=== PATIENT | female | born 1940 | race Caucasian/White ===

== ENCOUNTER → 2017-04-23 | Outpatient (CLI) | payer MEDICARE, BC ==
--- NOTE | 2017-04-23 14:18 | NM ---
EXAMINATION TYPE: NM bone scan whole body DATE OF EXAM: 04/23/2017 COMPARISON: NONE HISTORY: Evaluate for compression deformities at L2, L3, L4, and L5 as well as T12. Delayed whole-body scanning was performed following the injection of 24.7 mCi Tc 99m MDP. Images acq uired 3 hours post injection. FINDINGS: Focal increased radiotracer uptake is seen at T12, L2, L3, and L5. Only minimal radiotracer uptake is seen at L4 to correspond to the compression deformities seen on the outside radiograph dated 04/20/19 18. This indicates acute to subacute fractures of the T12, L2, L3 and L5 vertebral levels with likely chronic compression deformity of L4. Minimal symmetric uptake is seen within the elbows, sacroiliac joints, knees, and ankles related to d egenerative change. Physiologic excretion is seen within the kidneys and urinary bladder. IMPRESSION: 1. Increased radiotracer uptake within the T12, L2, L3 and L5 vertebral bodies indicative of acute to subacute compression fractures when correlated with the prior outside lumbar spine radiographs. No f ocal uptake is seen within the L4 vertebral body and therefore this is likely chronic. 2. Degenerative changes of the appendicular skeleton.
== END | disposition home or self-care (01) ==
LOC: RADNMMAIN 09:59
PROVIDERS: ATTEND Physical Medicine & Rehabilitation
DX: M47.817 Spondylosis without myelopathy or radiculopathy, lumbosacral region (principal)
CPT/HCPCS: 78306; A9503

== ENCOUNTER → 2017-07-05 | Outpatient (CLI) | payer MEDICARE, BC ==
--- NOTE | 2017-07-05 12:36 | MR ---
EXAMINATION TYPE: MR angio neck wo/w con DATE OF EXAM: 07/05/2017 COMPARISON: NONE HISTORY: occlusion and stenosis of unspecified carotid artery CONTRAST: Standard multiplanar, multisequence MRA departmental protocol utilizing 6.5 mL intravenous Gadavist g adolinium contrast. FINDINGS: Vertebral arteries are fairly symmetric in size with slight dominance on the right. The common carotid arteries are patent bilaterally. There is a high-grade severe stenosis measuring g reater than 8% within the proximal right ICA. Within the left proximal ICA there is mild to moderate atherosclerotic change approximately 40-50% st enosis. IMPRESSION: 1. Severe greater than 80% stenosis proximal right ICA. 2. Mild to moderate atherosclerotic changes proximal left ICA measuring 40-50% A Yellow level critical message alert has been initiated for Ilene Dyson DO via the [employer] Critical Results System on 07/05/2017 12:32 PM. This message alert has been sent to Ilene hunt DO via the preferences provided by the clinician for the receipt of Radiology Critical Findings . Message ID [id number].
== END | disposition home or self-care (01) ==
LOC: RADMRIMAIN 07:33
PROVIDERS: ATTEND Family Medicine
DX: I65.23 Occlusion and stenosis of bilateral carotid arteries (principal)
CPT/HCPCS: 70549; A9581

== ENCOUNTER → 2020-05-18 | Outpatient (CLI) | payer MEDICARE, BC ==
--- NOTE | 2020-05-18 10:53 | CT ---
EXAMINATION TYPE: CT abdomen pelvis wo con DATE OF EXAM: 05/18/2020 HISTORY: Back pain, rib pain. Unspecified abdominal pain. CT DLP: 859 mGycm. Automated Exposure Control for Dose Reduction was Utilized. TECHNIQUE: CT scan of the abdomen and pelvis is performed without oral or IV contrast. COMPARISON: NONE FINDINGS: Within the limitations of a non-contrast study, the following observations are made. LUNG BASES: Bibasilar linear scarring and/or atelectasis. Elevated left hemidiaphragm. LIVER/GB: Occasional tiny hypodense lesion anterior liver axial image 19 too small to further charact erize presumed benign. Gallbladder has dependent density consistent with small stones and/or sludge. No surrounding inflammatory change. PANCREAS: No significant abnormality is seen. SPLEEN: No significant abnormality is seen. ADRENALS: No significant abnormality is seen. KIDNEYS: There is a 5 mm nonobstructing calculus upper pole left kidney coronal image 63 suspected ve rsus focal vascular calcification thought less likely. No hydronephrosis or obstructing ureteral calc mehul bilaterally. BOWEL: No suspicious small or large bowel dilatation. Small bowel feces sign distal ileal loops. Find ings consistent with delayed passage of ingested material to colonic level. GENITAL ORGANS: Uterus surgically absent or markedly atrophic. LYMPH NODES: No greater than 1cm abdominal or pelvic lymph nodes are appreciated. OSSEOUS STRUCTURES: Osseous structures are demineralized. Mild to moderate multilevel chronic farhat abraham type fracture deformities with relative sparing of L1 level. Alignment is satisfactory. Multilev el facet arthropathy in the lower lumbar spine. OTHER: Ectatic abdominal aorta with moderate calcified plaque which extends into iliac branch vessels . Tiny fat-containing umbilical hernia. IMPRESSION: No bowel obstruction. Delayed passage of ingested material to colonic level. Demineraliza tion with mild to moderate multilevel chronic compression type fracture deformities. Probable 5 mm no nobstructing stone upper pole left kidney. No acute findings identified.
== END | disposition home or self-care (01) ==
LOC: RADCTMAIN 10:20
PROVIDERS: ATTEND Family Medicine
DX: R10.9 Unspecified abdominal pain (principal); R07.81 Pleurodynia
CPT/HCPCS: 74176

== ENCOUNTER 2020-07-20 05:56 | Day surgery (SDC) | payer MEDICARE, BC ==
[2020-07-15 17:17] VITALS: BMI 22.9
[~2020-07-20 05:56] MED LIST: ALPRAZolam 0.25 MG TAB PO PRN; ASPIRIN 325 MG TAB PO PRN; SODIUM CHLORIDE 0.9% 1,000 ML in EMPTY BAG 1 BAG IV ONE; ZOLPIDEM 5 MG TAB PO PRN
[2020-07-20 06:33] LABS: Basophils # (A) 0.1 k/uL (0-0.2); Basophils % (A) 1 %; Eosinophils # (A) 0.1 k/uL (0-0.7); Eosinophils % (A) 1 %; Lymphocytes % (A) 20 %; MCH 33.8 pg (25.0-35.0); MCHC 34.1 g/dL (31.0-37.0); Mean Platelet Volume 7.6; Monocytes # (A) 0.3 k/uL (0-1.0); Monocytes % (A) 6 %; Neutrophils # (A) 3.6 k/uL (1.3-7.7); Neutrophils % (A) 69 %; Platelet Count 156 k/uL (150-450); RBC 4.75 m/uL (3.80-5.40); RDW 12.7 % (11.5-15.5); WBC 5.2 k/uL (3.8-10.6)
[2020-07-20 06:46] LABS: African American GFR (CKD) >90 (>60 ml/min/1.73 sqM); Anion Gap 8 mmol/L; Blood Urea Nitrogen 10 mg/dL (7-17); Carbon Dioxide 25 mmol/L (22-30); Chloride 109 mmol/L (98-107); Glucose 106 mg/dL (74-99); Non-African American GFR(CKD) 87 (>60 ml/min/1.73 sqM); Sodium 142 mmol/L (137-145)
[2020-07-20] MEDS ORDERED: HEPARIN SODIUM,PORCINE 10,000 UNIT in SODIUM CHLORIDE 0.9% 1,000 ML IRRIGATION PRN (07:00)
[2020-07-20] MEDS ORDERED: HEPARIN SODIUM,PORCINE 2,500 UNIT in SODIUM CHLORIDE 0.9% 250 ML IRRIGATION PRN (07:00)
[2020-07-20] MEDS: MIDAZOLAM 2 MG/2 ML VIAL IV ONE ×2 (07:39→09:53)
[2020-07-20] MEDS ORDERED: fentaNYL (PF) 50 MCG/ML 2 ML AMP IV ONE (07:42)
[2020-07-20] MEDS ORDERED: LIDOCAINE 1% INJ 10MG/ML (20 ML MDV) SQ ONE (07:46)
[2020-07-20] MEDS ORDERED: MIDAZOLAM 2 MG/2 ML VIAL IV ONE ×2 (07:46→08:33)
[2020-07-20] MEDS ORDERED: VERAPAMIL SYRINGE (5 MG/10 ML) INTRAARTER ONE (07:48)
[2020-07-20] MEDS ORDERED: CLOPIDOGREL 75 MG TAB PO ONE (08:39)
[2020-07-20] MEDS ORDERED: HEPARIN SODIUM 1,000 UN/ML (10ML VL) IV ONE (08:46)
[2020-07-20] MEDS ORDERED: IOPAMIDOL-250 100ML BTL INTRAARTER ONE ×3 (09:35→10:01)
[2020-07-20] MEDS ORDERED: hydrALAZINE HCL 20 MG/ML 1 ML VIAL IV ONE (10:00)
--- NOTE | 2020-07-20 10:30 | IR ---
Fluoroscopy HISTORY: Pain in leg 43.8 minutes fluoroscopy time supplied to the referring clinician. 935 intraoperative C-arm images d ocument the procedure. See dictated report from cardiology.
[2020-07-20] MEDS: SODIUM CHLORIDE 0.9% 1,000 ML in EMPTY BAG 1 BAG IV SCH ×2 (14:10→15:43)
--- NOTE | 2020-07-20 15:44 | P.PCN ---
Description of Procedure: PROCEDURES PERFORMED: Abdominal angiography with bilateral runoff, ultrasound guided femoral access, PTBA right proximal to distal SFA with 4.0 balloon, GEOFF of proximal to distal right SFA with overlapping 6.0 x 140 and 5.0 x 140mm Zilver PTX, post dilated with a 5.0 balloon, balloon expandable 7.0 x 29mm Omnilink stent right external iliac artery, left Angioseal closure INDICATION: He class 3 claudication, abnormal ultrasound HISTORY: Patient is a pleasant 80-year-old female with history of hypertension, PAD with carotid artery stenosis and ultrasound showing monophasic waveforms bilaterally concerning for inflow disease. Patient has been having worsened right claudication symptoms with inability to walk more than 100 m and therefore was recommended to perform angiography with possible intervention. CONSENT:I have discussed the risks, benefits and alternative therapies for the above-mentioned procedure and for both sedation/analgesia as well as necessary blood product administration, if indicated, as they pertain to this patient. The patient has indicated understanding and acceptance of the risks and pro cedures discussed. PROCEDURE: After the risks, benefits and alternatives of the above mentioned procedure explained in detail with the patient, informed consent was obtained. Patient was taken to the catheterization lab and prepped and draped in usual fashion. 1% lidocaine was used to anesthetize the right radial area. A 5- [place]an sheath was placed in the right radial artery using modified Seldinger technique. A 5-[place]rean pigtail catheter was inserted to the abdominal aorta and DSA imaging was obtained. Patient tolerated the diagnostic portion well. Due to significant symptoms right SFA and right external iliac intervention was recommended. A 6 [place]rean sheath was inserted in the left femoral artery using modified Seldinger technique, micropuncture technique and ultrasound guidance. A 60 cm destination sheath was placed up and over with the help of a 5 [place]an rim catheter and a 0.035 stiff glide wire. Next selective right lower extremity angiography was performed. A 0.035 stiff Glidewire inside of a angled glide catheter was advanced through the proximal lesion. There was more distal SFA resistance with inability to penetrate the cap. Therefore a subintimal route was utilized. A 0.014 Astato wire was used to reenter into the true lumen with the help of a Quick Cross catheter. Next the Astato wire was exchanged for a 0.018 VK wire which was used to work over. Heparin had been given for an ACT greater than 250. Balloon angioplasty was performed of the SFA using a 4.0 x 100 balloon. Next a 5.0 x 140 mm Zilver PTX drug-eluting stent was placed at the distal SFA and a 6.0 x 140 mm Zilver PTX drug-eluting stent was placed overlapping at the ostial SFA overlapping with the previously placed 5.0 Zilver stent. Next the stents were post dilated with a 5.0 balloon. Final angiograms were performed with excellent stent apposition and less than 10% residual stenosis. Preintervention there was 100% stenosis and postintervention there is less than 10% stenosis. Prevention there was no antegrade flow and postintervention there was complete antegrade flow. There was a more proximal common iliac 50% stenosis and a right external iliac what appeared to be 70-80% stenosis however there was a substantial gradient noted with the destination sheath and therefore pullback was performed. Pullback revealed a 75 mm gradient after the external iliac stenosis. On repeat imaging there was a 90% proximal stenosis. Given poor inflow noted on prior ultrasound and to allow for proper flow for stents and her symptoms, the external iliac stenosis was elected to be treated. Therefore over the 0.035 stiff Glidewire a 7.0 x 29 mm Omnilink balloon expandable stent was deployed. Preintervention there was 90% stenosis and complete antegrade flow and postintervention there is 10% residual stenosis with complete antegrade flow. A TR band was placed and the right radial sheath was removed. A left femoral angiogram showed anatomy suitable for closure. A 6Fr Angioseal was placed with hemostasis achieved. The patient tolerated the procedure well. Patient was transported back to the post catheterization holding area in stable condition. Conscious Sedation: Patient was monitored under the direct supervision of vision of myself for conscious sedation using Versed and fentanyl for a total duration of 138 minutes Abdominal aorta: The pelvic aorta has mild calcifcation. There is no significant dissection or aneurysm. There is no significant stenosis. Renal arteries were not viewed. Right lower extremity: Right common iliac artery: There is a proximal 50% stenosis. Right external iliac artery: There is a proximal 90% stenosis. Right internal iliac artery: There is diffuse 30% stenosis. Right common femoral artery: There is diffuse 30-50% common femoral artery stenosis. Right profunda: There is no significant stenosis. Right SFA: There is a long diffuse 70-80% stenosis back to the ostial SFA along with a mid to distal 100% right SFA stenosis. Right popliteal artery: There is mild 30% stenosis. Right tibioperoneal trunk: There is a 85% TP trunk stenosis. Right anterior tibial artery: There is 100% stenosis. Right posterior tibial artery: There is no significant stenosis Right peroneal artery: There is no significant stenosis Left lower extremity: Left common iliac artery: There is 50-60% stenosis. Left external iliac artery: There is no significant stenosis. Left internal iliac artery: There is 100% stenosis. Left common femoral artery: There is mild 30% stenosis. Left profunda: There is 40% stenosis. Left SFA: There is no significant stenosis. Left popliteal artery: There is no significant stenosis. Left tibioperoneal trunk: There is no significant stenosis. Left anterior tibial artery: There is no significant stenosis. Left porterior tibial artery: There is no significant stenosis. Left peroneal artery: There is no significant stenosis. FINAL IMPRESSION: 1. Peripheral arterial disease as described above including 100% right SFA, 90% right external iliac artery stenosis, 100% right AT, 90% tibioperoneal trunk stenosis. Left 50-60% common iliac artery stenosis. 2. S/p successful GEOFF of proximal to distal right SFA with overlapping 6.0 x 140 and 5.0 x 140mm Zilver PTX, post dilated with a 5.0 balloon and balloon expandable 7.0 x 29mm Omnilink stent of right external iliac artery. PLAN: 1. Aggressive risk factor modification per most recent ACC/AHA guidelines. 2. Monitor overnight 3. Continue dual antiplatelets.
[2020-07-20 17:26] LABS: Glucose,Whole Blood 102 mg/dL (75-99)
[2020-07-20 20:44] LABS: Glucose,Whole Blood 113 mg/dL (75-99)
[2020-07-20] MEDS ORDERED: ATORVASTATIN 20 MG TAB PO SCH (21:00)
[2020-07-21 06:21] LABS: Basophils % (A) 0 %; Eosinophils % (A) 0 %; HCT 41.2 % (34.0-46.0); HGB 14.1 gm/dL (11.4-16.0); Lymphocytes # (A) 0.9 k/uL (1.0-4.8); Lymphocytes % (A) 14 %; MCH 33.6 pg (25.0-35.0); MCHC 34.2 g/dL (31.0-37.0); MCV 98.2 fL (80.0-100.0); Mean Platelet Volume 7.4; Monocytes # (A) 0.4 k/uL (0-1.0); Monocytes % (A) 6 %; Neutrophils # (A) 4.9 k/uL (1.3-7.7); Neutrophils % (A) 78 %; Platelet Count 132 k/uL (150-450); RDW 13.1 % (11.5-15.5); WBC 6.3 k/uL (3.8-10.6)
[2020-07-21 06:31] LABS: African American GFR (CKD) >90 (>60 ml/min/1.73 sqM); Anion Gap 4 mmol/L; Blood Urea Nitrogen 9 mg/dL (7-17); Calcium 9.4 mg/dL (8.4-10.2); Carbon Dioxide 25 mmol/L (22-30); Chloride 110 mmol/L (98-107); Glucose 98 mg/dL (74-99); Non-African American GFR(CKD) >90 (>60 ml/min/1.73 sqM); Potassium 3.8 mmol/L (3.5-5.1); Sodium 139 mmol/L (137-145)
[2020-07-21 07:15] LABS: Glucose,Whole Blood 112 mg/dL (75-99)
[2020-07-21 07:32] VITALS: BP 136/82; PULSE 65; RESP 18; TEMP 97.9
--- NOTE | 2020-07-21 08:10 | P.DS ---
Providers Attending physician: Hebert Corcoran DO Primary care physician: Timbo Altamirano MD Hospital Course: Patient is a pleasant 80-year-old female with history of hypertension, PAD with carotid artery stenosis and ultrasound showing monophasic waveforms bilaterally concerning for inflow disease. Patient has been having worsened right claudication symptoms with inability to walk more than 100 m and therefore was recommended to perform angiography. Patient underwent diagnostic procedure from the right radial approach on 07/20/2020. Patient was found to have obstructive right external iliac disease as well as a 100% stenosis of the right SFA and some below the knee disease with 2 vessel runoff. Therefore patient underwent successful drug-eluting stenting of the right SFA as well as stenting of the right external iliac from a left femoral approach. On 07/21/2020 patient denied any symptoms, no chest pain or pressure or shortness breath. Her groin site is without hematoma. Patient will be discharged home on aspirin and Plavix. Plan - Discharge Summary Discharge Rx Participant: No New Discharge Prescriptions: No Action Ascorbic Acid [Vitamin C] 500 mg PO DAILY Atorvastatin [Lipitor] 20 mg PO HS Ubidecarenone [Co Q-10] 400 mg PO DAILY Cholecalciferol (Vitamin D3) [Vitamin D3 (5000 Iu)] 125 mcg PO DAILY Aspirin EC [Ecotrin] 325 mg PO DAILY Losartan Potassium 100 mg PO QAM Discharge Medication List Ascorbic Acid [Vitamin C] 500 mg PO DAILY 07/15/20 [History] Aspirin EC [Ecotrin] 325 mg PO DAILY 07/15/20 [History] Atorvastatin [Lipitor] 20 mg PO HS 07/15/20 [History] Cholecalciferol (Vitamin D3) [Vitamin D3 (5000 Iu)] 125 mcg PO DAILY 07/15/20 [History] Losartan Potassium 100 mg PO QAM 07/15/20 [History] Ubidecarenone [Co Q-10] 400 mg PO DAILY 07/15/20 [History]
[2020-07-21] MEDS ORDERED: CLOPIDOGREL 75 MG TAB PO SCH (09:00)
[2020-07-21] MEDS ORDERED: LOSARTAN 50 MG TAB PO SCH (09:00)
[2020-07-21] MEDS ORDERED: CHOLECALCIFEROL 25 MCG (1000 IU) TABLET PO SCH (09:00)
[2020-07-21] MEDS ORDERED: ASCORBIC ACID 500 MG TAB PO SCH (09:00)
[2020-07-21] MEDS ORDERED: ASPIRIN 325 MG TAB PO SCH (09:00)
[2020-07-21] MEDS ORDERED: NON FORMULARY DRUG (Ubidecarenone [Co Q-10] 400 MG Capsule) PO SCH (09:00)
== END 2020-07-21 10:27 | disposition home or self-care (01) ==
LOC: CATHCVL 05:56 → 6NMEDSUR 13:45 → 6PED 13:54 → CATHCVL 07-21 10:27
PROVIDERS: ATTEND Internal Medicine
DX: I70.211 Atherosclerosis of native arteries of extremities with intermittent claudication, right leg (principal); I10 Essential (primary) hypertension; E78.5 Hyperlipidemia, unspecified; R94.8 Abnormal results of function studies of other organs and systems; Z87.891 Personal history of nicotine dependence; I65.21 Occlusion and stenosis of right carotid artery; Z95.820 Peripheral vascular angioplasty status with implants and grafts; Z82.49 Family history of ischemic heart disease and other diseases of the circulatory system; Z79.82 Long term (current) use of aspirin; Z79.899 Other long term (current) drug therapy; Z20.822 Contact with and (suspected) exposure to COVID-19
CPT/HCPCS: 37221; 37226; 80048 ×2; 85025 ×2; 87635; C1769 ×8; C1760; C1894 ×3; C1876; C1725; C1887; C1874; J2250; J0360; J2001; J3010; J1644 ×2; Q9966; 37220

== ENCOUNTER → 2020-08-09 | Outpatient (CLI) | payer MEDICARE, BC ==
[2020-08-09 10:00] LABS: HCT 45.8 % (34.0-46.0); HGB 15.7 gm/dL (11.4-16.0); MCH 34.4 pg (25.0-35.0); MCHC 34.3 g/dL (31.0-37.0); MCV 100.2 fL (80.0-100.0); Mean Platelet Volume 7.5; Platelet Count 180 k/uL (150-450); RBC 4.57 m/uL (3.80-5.40); WBC 4.5 k/uL (3.8-10.6)
[2020-08-09 10:12] LABS: African American GFR (CKD) >90 (>60 ml/min/1.73 sqM); Anion Gap 4 mmol/L; Blood Urea Nitrogen 10 mg/dL (7-17); Carbon Dioxide 29 mmol/L (22-30); Chloride 107 mmol/L (98-107); Non-African American GFR(CKD) 86 (>60 ml/min/1.73 sqM); Potassium 4.3 mmol/L (3.5-5.1); Sodium 140 mmol/L (137-145)
== END | disposition home or self-care (01) ==
LOC: LABPAT 09:11
PROVIDERS: ATTEND Internal Medicine
DX: Z01.812 Encounter for preprocedural laboratory examination (principal); I65.21 Occlusion and stenosis of right carotid artery
CPT/HCPCS: 36415; 80051; 82565; 84520; 85027

== ENCOUNTER 2020-08-13 06:04 | Inpatient (IN) | payer MEDICARE, BC ==
[2020-08-11 15:22] VITALS: BMI 23.3
[~2020-08-13 06:04] MED LIST changes: +ALPRAZolam 0.5 MG TAB PO PRN; -ASPIRIN 325 MG TAB PO PRN; +NITROGLYCERIN SL TABS 0.4 MG TAB SUBLINGUAL PRN; -ZOLPIDEM 5 MG TAB PO PRN
[2020-08-13] MEDS ORDERED: ASPIRIN 325 MG TAB PO PRN (07:00)
[2020-08-13] MEDS ORDERED: CLOPIDOGREL 75 MG TAB PO PRN (07:00)
[2020-08-13] MEDS ORDERED: HEPARIN SODIUM 1,000 UN/ML (10ML VL) ONE (07:32)
[2020-08-13] MEDS ORDERED: fentaNYL (PF) 50 MCG/ML 2 ML AMP ONE (07:38)
[2020-08-13] MEDS: fentaNYL (PF) 50 MCG/ML 2 ML AMP IVP ONE ×2 (07:42→10:00)
[2020-08-13] MEDS: MIDAZOLAM 2 MG/2 ML VIAL IVP ONE ×2 (07:42→10:00)
[2020-08-13] MEDS: LIDOCAINE 1% INJ 10MG/ML (20 ML MDV) SQ ONE ×2 (07:45→09:15)
[2020-08-13] MEDS: VERAPAMIL SYRINGE (5 MG/10 ML) INTRAARTER ONE ×2 (07:47→07:54)
[2020-08-13] MEDS: HEPARIN SODIUM 1,000 UN/ML (10ML VL) IVP ONE ×4 (07:55→09:55)
[2020-08-13] MEDS ORDERED: RX INFO: IV CONTRAST WAS GIVEN 1 EACH MISC MISCELLANE PRN (09:00)
[2020-08-13] MEDS ORDERED: IOPAMIDOL-250 100ML BTL INTRAARTER ONE ×3 (09:16→10:53)
[2020-08-13] MEDS ORDERED: IOPAMIDOL-250 50ML BTL INTRAARTER ONE (10:53)
[2020-08-13 11:31] LABS: Glucose,Whole Blood 110 mg/dL (75-99)
[2020-08-13] MEDS ORDERED: ATROPINE SULFATE 0.1 MG/ML 10ML SYRINGE IV PRN (12:58)
[2020-08-13] MEDS ORDERED: MAG HYDROX/AL HYDROX/SIMETH 30 ML CUP PO PRN (12:58)
--- NOTE | 2020-08-13 20:10 | P.PCN ---
Description of Procedure: PROCEDURES PERFORMED: Right radial access, aortic arch angiography, selective right carotid angiography, [id number] carotid stent placement with a post angioplasty 5mm balloon INDICATION: Severe asymptomatic right internal carotid artery stenosis HISTORY: Patient is a pleasant 80-year-old female with history of PAD status post iliac stenting, hypertension, hyperlipidemia, asymptomatic right carotid artery stenosis with prior ultrasound showing greater than 80% stenosis and prior MRA from 07/05/2017 showing greater than 80% stenosis. Patient was felt to be higher risk for carotid endarterectomy given comorbidities and did not desire to undergo surgery and therefore carotid artery stenting was recommended. CONSENT:I have discussed the risks, benefits and alternative therapies for the above-mentioned procedure and for both sedation/analgesia as well as necessary blood product administration, if indicated, as they pertain to this patient. The patient has indicated understanding and acceptance of the risks and procedures discussed. PROCEDURE: After the risks, benefits and alternatives of the above mentioned procedure explained in detail with the patient, informed consent was obtained. Patient was taken to the catheterization lab and prepped and draped in usual fashion. Patient was noted to have a Type 3 arch from prior MRA with some difficulty engaging the descending from radial approach last peripheral stenting and therefore a radial approach was attempted. 1% lidocaine was used to anesthetize the right radial artery. A 6-[place] Islander sheath was placed in the right radial artery using modified Seldinger technique. A 6Fr Terumo 95cm sheath was advanced into the right subclavian. Using catheters including FR4, TARA, Hale 2, VTK, rim catheter the right common carotid artery was able to be engaged however nothing was able to be advanced with some degree of toruosity. Therefore radial approach was abandonded. Aortic root angiography was performed with a 6Fr pigtail catheter. Next a 6Fr sheath was placed in the right femoral artery using micropuncture technique and ultrasound guidance and patient was noted to have extensive mild to moderate plaquing of the right common femoral artery. A 6Fr destination sheath was advanced into the arch. A 0.035 glide advantage in a VTK was used to engage the right subclavian artery however due to toruosity kept kicking out and was unable to be advanced. A 0.035 regular glade wire was advanced through the VTK and advanced down the subclavian to brachial artery. Next a glide sheath was advanced into the brachial and the 0.035 glide was exchanged for the 0.035 glide advantage. The sheath was then able to be advanced into the right innominate over a 6Fr FR4 catheter. The catheter was then able to be pulled back and the 0.035 glide advantage was placed in the external carotid artery. Next the sheath was able to be advanced into the right common carotid artery. Selective right carotid angiography was performed verifying a 90% proximal right internal carotid artery stenosis as well as a more distal right internal carotid artery 50-60% stenosis which was felt best treated medically. Due to contrast threshold, no intracranial images were performed. Heparin was given to maintain ACT > 250. The lesion was crossed easily with a 7.2mm Nav6 filter device and the filter was deployed in the petrous portion of the internal carotid artery. Next balloon angioplasty was performed with a 4.0 x 20mm balloon. Next a [id number] XAct carotid stent was placed overlying the lesion extending into the common carotid artery. The lesion was post dilated with a 5.0 balloon. Preintervention there was a 90% right internal carotid artery stenosis and post intervention there was 15% stenosis without dissection and normal flow. The filter was retrieved without any thrombus noted. Final angiograms were taken. Due to heavy calcification of the right common femoral artery, the sheath was left in place for manual removal. The right radial sheath was removed and a TR band was placed with hemostasis achieved. The patient tolerated the procedure well. Patient was transported back to the post catheterization holding area in stable condition. Conscious Sedation: Patient was monitored under the direct supervision of vision of myself for conscious sedation using Versed and fentanyl for a total duration of 180 minutes HEMODYNAMICS: Ao: 134/78 FINDINGS: Aortic arch angiogram: Patient has a Type 3 aortic arch without aneurysm or dissection. There is no significant stenosis of the innominate, left common carotid or left subclavian arteries. Right common carotid artery: no significant stenosis Right external carotid artery: no significant stenosis Right internal carotid artery: proximal 90% stenosis, distal 50-60% stenosis FINAL IMPRESSION: 1. Successful right internal carotid artery stenting with a [id number] carotid XAct stent, post dilated with a 5.0 balloon PLAN: 1. Monitor for hemodynamic and electrical stability in ICU overnight. 2. Continue dual antiplatelets with aspirin and PLavix for minimum 3 months.
[2020-08-13] MEDS ORDERED: ATORVASTATIN 40 MG TAB PO SCH (21:00)
[2020-08-14 05:16] LABS: Basophils % (A) 1 %; Eosinophils % (A) 1 %; HCT 36.6 % (34.0-46.0); Lymphocytes # (A) 0.5 k/uL (1.0-4.8); Lymphocytes % (A) 9 %; MCH 34.6 pg (25.0-35.0); MCHC 34.8 g/dL (31.0-37.0); MCV 99.4 fL (80.0-100.0); Mean Platelet Volume 8.2; Monocytes # (A) 0.4 k/uL (0-1.0); Monocytes % (A) 7 %; Neutrophils # (A) 4.9 k/uL (1.3-7.7); Neutrophils % (A) 81 %; Platelet Count 129 k/uL (150-450); RBC 3.68 m/uL (3.80-5.40); RDW 12.9 % (11.5-15.5)
[2020-08-14 05:25] LABS: HGB 12.7 gm/dL (11.4-16.0)
[2020-08-14 05:35] LABS: African American GFR (CKD) >90 (>60 ml/min/1.73 sqM); Anion Gap 4 mmol/L; Blood Urea Nitrogen 13 mg/dL (7-17); Calcium 9.2 mg/dL (8.4-10.2); Carbon Dioxide 24 mmol/L (22-30); Chloride 108 mmol/L (98-107); Glucose 102 mg/dL (74-99); Non-African American GFR(CKD) >90 (>60 ml/min/1.73 sqM); Sodium 136 mmol/L (137-145)
[2020-08-14] MEDS ORDERED: LOSARTAN 50 MG TAB PO SCH (09:00)
[2020-08-14] MEDS ORDERED: CLOPIDOGREL 75 MG TAB PO SCH (09:00)
[2020-08-14] MEDS ORDERED: ASPIRIN 325 MG TAB PO SCH (09:00)
[2020-08-14 13:37] VITALS: TEMP 98.2
--- NOTE | 2020-08-14 15:41 | P.DS ---
Providers Date of admission: 08/13/20 06:04 Attending physician: Hebert Corcoran DO Consults: 08/13/20 12:59 Consult Physician Routine Consulting Provider: Martin Grewal Consult Reason/Comments: Post Interventional patient Do you want consulting provider notified?: Already Contacted Primary care physician: Timbo Altamirano MD Hospital Course: This patient was brought in by Dr. Corcoran for elective right carotid endarterectomy for significant stenosis of more than 80%. Patient had successful stenting of the RCA. Patient remained stable overnight. Denies any chest pain, shortness of breath, dizziness. Neurologically intact, moving all the extremities. Lungs are clear. Heart is regular. Patient is being discharged home to continue home medication, that include aspirin and Plavix. Patient will have follow-up with Dr. Corcoran in one week. Patient is advised to avoid any heavy exertional activities. Report to Dr. Corcoran if she develops any change in clinical status or neurological status. Plan - Discharge Summary Discharge Rx Participant: No New Discharge Prescriptions: Continue Ascorbic Acid [Vitamin C] 500 mg PO DAILY Atorvastatin [Lipitor] 20 mg PO HS Ubidecarenone [Co Q-10] 200 mg PO DAILY Cholecalciferol (Vitamin D3) [Vitamin D3 (5000 Iu)] 125 mcg PO DAILY Losartan Potassium 100 mg PO QAM Clopidogrel [Plavix] 75 mg PO DAILY #90 tablet Aspirin [Adult Low Dose Aspirin EC] 81 mg PO DAILY Discharge Medication List Ascorbic Acid [Vitamin C] 500 mg PO DAILY 07/15/20 [History] Atorvastatin [Lipitor] 20 mg PO HS 07/15/20 [History] Cholecalciferol (Vitamin D3) [Vitamin D3 (5000 Iu)] 125 mcg PO DAILY 07/15/20 [History] Losartan Potassium 100 mg PO QAM 07/15/20 [History] Ubidecarenone [Co Q-10] 200 mg PO DAILY 07/15/20 [History] Clopidogrel [Plavix] 75 mg PO DAILY #90 tablet 07/21/20 [Rx] Aspirin [Adult Low Dose Aspirin EC] 81 mg PO DAILY 08/11/20 [History] Follow up Appointment(s)/Referral(s): Hebert Corcoran DO [STAFF PHYSICIAN] - 1 Week (Unable to make appointment at this time as it is after office hours, patient educated to contact office during regular scheduled hours and make follow-up appointment. ) Patient Instructions/Handouts: *Surgery [facility] - After Heart Catheterization - Meal Room Hand Instructions, Carotid Artery Stent Placement (DC) Discharge Disposition: HOME SELF-CARE
[2020-08-14 15:46] VITALS: BP 126/66; PULSE 72; RESP 34
--- NOTE | 2020-08-16 12:42 | IR ---
Fluoroscopy HISTORY: Carotid stenosis 73.6 minutes fluoroscopy time supplied to the referring clinician. 485 intraoperative C-arm images d ocument the procedure. See dictated report from cardiology.
== END 2020-08-14 16:40 | disposition home or self-care (01) | DRG 36 ==
LOC: 2ORMAIN 06:04 → 2SICU 11:08
PROVIDERS: ADMIT Internal Medicine; ATTEND Internal Medicine
PROC: B3101ZZ Fluoroscopy of Thoracic Aorta using Low Osmolar Contrast (ICD-10-PCS; 2020-08-13)
PROC: B3161ZZ Fluoroscopy of Right Internal Carotid Artery using Low Osmolar Contrast (ICD-10-PCS; 2020-08-13)
PROC: 037K3DZ Dilation of Right Internal Carotid Artery with Intraluminal Device, Percutaneous Approach (ICD-10-PCS; principal; 2020-08-13 07:30)
DX: I65.21 Occlusion and stenosis of right carotid artery (principal); I10 Essential (primary) hypertension; E78.5 Hyperlipidemia, unspecified; Z20.822 Contact with and (suspected) exposure to COVID-19
CPT/HCPCS: 37215; 80048; 85025; 87635

== ENCOUNTER → 2021-04-27 | Outpatient (CLI) | payer MEDICARE, BC ==
[2021-04-27 15:01] LABS: ALT 18 U/L (8-44); AST 19 U/L (13-35); Chol/HDL Ratio 2.37 Ratio; VLDL Calculation 16.44 mg/dL (5.00-40.00)
== END | disposition home or self-care (01) ==
LOC: LABWHC1 08:41
PROVIDERS: ATTEND Internal Medicine
DX: E78.2 Mixed hyperlipidemia (principal)
CPT/HCPCS: 36415; 80061; 84450; 84460

== ENCOUNTER → 2021-11-29 | Outpatient (CLI) | payer MEDICARE, BC ==
[2021-11-30 01:02] LABS: African American GFR (CKD) 93.5 (60.0-200.0); Anion Gap 9.5 mmol/L (10.00-18.00); Blood Urea Nitrogen 15.4 mg/dL (9.0-27.0); Calcium 9.9 mg/dL (8.7-10.3); Carbon Dioxide 25.5 mmol/L (20.0-27.5); Non-African American GFR(CKD) 80.7 (60.0-200.0); Potassium 4.6 mmol/L (3.5-5.5)
[2021-11-30 01:37] LABS: HCT 48.6 % (37.2-46.3); MCH 33.3 pg (27.0-32.0); MCHC 32.9 g/dL (32.0-37.0); MCV 101.3 fL (80.0-97.0); Mean Platelet Volume 11.4 fL (9.5-12.2); NRBC Per 100 WBC 0 /100 WBCS (0.0-0.0); Platelet Count 167 X 10*3/uL (140-440); RDW 12.7 % (11.5-14.5)
== END | disposition home or self-care (01) ==
LOC: LABWHC1 16:10
PROVIDERS: ATTEND Internal Medicine Interventional Cardiology
DX: I48.11 Longstanding persistent atrial fibrillation (principal)
CPT/HCPCS: 36415; 80048; 83880; 84443; 85027

== ENCOUNTER → 2022-06-14 | Outpatient (CLI) | payer MEDICARE, BC ==
[2022-06-14 15:14] LABS: Basophils # (A) 0.06 X 10*3/uL (0.00-0.10); Basophils % (A) 1.2 %; Eosinophils # (A) 0.02 X 10*3/uL (0.04-0.35); Eosinophils % (A) 0.4 %; HCT 48.2 % (37.2-46.3); HGB 16.3 g/dL (12.0-15.0); Immature Grans, Automated 0.2 %; Lymphocytes # (A) 1.43 X 10*3/uL (0.90-5.00); MCH 33.3 pg (27.0-32.0); MCHC 33.8 g/dL (32.0-37.0); MCV 98.4 fL (80.0-97.0); Mean Platelet Volume 10.7 fL (9.5-12.2); Monocytes # (A) 0.55 X 10*3/uL (0.20-1.00); Monocytes % (A) 10.8 %; NRBC Per 100 WBC 0 /100 WBCS (0.0-0.0); Neutrophils # (A) 3.04 X 10*3/uL (1.80-7.70); Neutrophils % (A) 59.4 %; Platelet Count 159 X 10*3/uL (140-440); RDW 12.6 % (11.5-14.5); WBC 5.11 X 10*3/uL (4.50-10.00)
[2022-06-14 17:19] LABS: Chol/HDL Ratio 2.96 Ratio; LDL Cholesterol,Calculated 98.5 mg/dL (0.0-131.0)
[2022-06-14 18:11] LABS: ALT 30 U/L (8-44); AST 33 U/L (13-35); Albumin 4.6 g/dL (3.8-4.9); Alkaline Phosphatase 81 U/L (41-126); BUN/Creat Ratio 18.38 Ratio (12.00-20.00); Blood Urea Nitrogen 14.7 mg/dL (9.0-27.0); Calcium 10.1 mg/dL (8.7-10.3); Carbon Dioxide 24.9 mmol/L (20.0-27.5); Chloride 104 mmol/L (96-109); Globulin 2.3 g/dL (1.6-3.3); Glucose 93 mg/dL (70-110); Non-African American GFR(CKD) 68.2 (60.0-200.0); Potassium 4.8 mmol/L (3.5-5.5); Sodium 141 mmol/L (135-145); Total Protein 6.9 g/dL (6.2-8.2)
== END | disposition home or self-care (01) ==
LOC: LABWHC1 09:39
PROVIDERS: ATTEND Family Medicine
DX: I10 Essential (primary) hypertension (principal); I65.29 Occlusion and stenosis of unspecified carotid artery; R53.83 Other fatigue
CPT/HCPCS: 36415; 80053; 80061; 82306; 83036; 84443; 85025

== ENCOUNTER 2022-12-02 08:59 | Emergency (ER) | payer MEDICARE, BC ==
--- NOTE | 2022-12-02 09:12 | ED ---
Female Urogenital HPI - General Chief complaint: Urogenital Stated complaint: Blood in Urine Time Seen by Provider: 12/02/22 09:00 Source: patient, RN notes reviewed Mode of arrival: EMS Limitations: no limitations - History of Present Illness Initial comments: This is an 82-year-old female who presents to the emergency department for hematuria. States that when she got up to use the restroom this morning, she urinated essentially pure blood. Since then, she has urinated several more times, and again states that it is only blood. She has started to feel fairly weak, and is worried about losing too much blood. She was started on warfarin for atrial fibrillation a few months ago. She had her INR checked yesterday, and states that it was 3.6. She does complain of some left mid back pain over the last couple of days. Denies any abdominal pain, nausea, or vomiting. Denies any fevers, chills, sore throat, cough, dyspnea, chest pain, palpitations, abdominal pain, nausea, vomiting, diarrhea, or headaches. MD Complaint: other (hematuria) - Related Data Home Medications Medication Instructions Recorded Confirmed Ascorbic Acid [Vitamin C] 500 mg PO DAILY 07/15/20 08/13/20 Atorvastatin [Lipitor] 20 mg PO HS 07/15/20 08/13/20 Cholecalciferol (Vitamin D3) 125 mcg PO DAILY 07/15/20 08/13/20 [Vitamin D3 (5000 Iu)] Losartan Potassium 100 mg PO QAM 07/15/20 08/13/20 Ubidecarenone [Co Q-10] 200 mg PO DAILY 07/15/20 08/13/20 Aspirin [Adult Low Dose Aspirin EC] 81 mg PO DAILY 08/11/20 08/13/20 Previous Rx's Medication Instructions Recorded Clopidogrel [Plavix] 75 mg PO DAILY #90 tablet 07/21/20 Allergies Allergy/AdvReac Type Severity Reaction Status Date / Time antiperspirant deoderant Allergy boils Uncoded 12/02/22 09:17 Review of Systems ROS Statement: Those systems with pertinent positive or pertinent negative responses have been documented in the HPI. ROS Other: All systems not noted in ROS Statement are negative. Past Medical History Past Medical History: Hyperlipidemia, Hypertension Additional Past Medical History / Comment(s): SOB, leg pain, PVD, osteoporosis, hx of glaucoma History of Any Multi-Drug Resistant Organisms: None Reported Past Surgical History: Hysterectomy Additional Past Surgical History / Comment(s): states had "balloon sx on both legs in past" partial thyroidectomy, laser sx carmel eyes for glaucoma, Past Anesthesia/Blood Transfusion Reactions: No Reported Reaction Past Alcohol Use History: Occasional Additional Past Alcohol Use History / Comment(s): quit smoking 1994, smoked 1ppd - Past Family History Mother Family Medical History: No Reported History General Exam Limitations: no limitations General appearance: alert, in no apparent distress Head exam: Present: atraumatic, normocephalic, normal inspection Respiratory exam: Present: normal lung sounds bilaterally. Absent: respiratory distress, wheezes, rales, rhonchi, stridor Cardiovascular Exam: Present: regular rate, normal rhythm, normal heart sounds. Absent: systolic murmur, diastolic murmur, rubs, gallop, clicks GI/Abdominal exam: Present: soft, normal bowel sounds. Absent: distended, tenderness, guarding, rebound, rigid Back exam: Present: CVA tenderness (L). Absent: CVA tenderness (R) Neurological exam: Present: alert, oriented X3, CN II-XII intact Psychiatric exam: Present: normal affect, normal mood Skin exam: Present: warm, dry, intact, normal color. Absent: rash Course Vital Signs 12/02/22 12/02/22 12/02/22 09:09 10:00 10:40 Temperature 97.7 F Pulse Rate 71 65 61 Respiratory 16 18 18 Rate Blood Pressure 211/101 156/122 157/103 O2 Sat by Pulse 95 94 L 94 L Oximetry 12/02/22 12:03 Temperature 97.7 F Pulse Rate 64 Respiratory 18 Rate Blood Pressure 166/88 O2 Sat by Pulse 94 L Oximetry Medical Decision Making - Medical Decision Making This is an 82-year-old female who presents to the emergency department for hematuria. Was pt. sent in by a medical professional or institution? @ -No Did you speak to anyone other than the patient for history? @ -No Did you review nursing and triage notes? @ -Yes, and I agree, it is accurate with regards to the patient's symptoms. Were old charts reviewed? @ -No Differential Diagnosis? @ -Differential Hematuria: UTI, pyelonephritis, malignancy, kidney stone, urethral injury, glomerulonephritis, this is not meant to be an all-inclusive list. EKG interpreted by me (3pts min.)? @ -EKG interpreted by me demonstrating the following: Sinus rhythm. Ventricular rate 62 beats per minute, [place] interval 181 ms, QRS duration 97 ms, QTC 399 ms. X-rays interpreted by me (1pt min.)? @ -Not obtained CT interpreted by me (1pt min.)? @ -Computed tomography scan of the abdomen and pelvis obtained. My interpretation identifies no evidence of a ureteral calculus. U/S interpreted by me (1pt. min.)? @ -Not obtained What testing was considered but not performed? (CT, X-rays, U/S, labs)? Why? @ -None What meds were considered but not given? Why? @ -None Did you discuss the management of the patient with other professionals? @ -No Did you reconcile home meds? @ -No Was smoking cessation discussed for >3mins.? @ -No Was critical care preformed (if so, how long)? @ -No Were there social determinants of health that impacted care today? How? (Homelessness, low income, unemployed, alcoholism, drug addiction, transportation, low edu. Level, literacy, decrease access to med. care, intermediate, rehab)? @ -No Was there de-escalation of care discussed even if they declined? (Discuss DNR or withdrawal of care, Hospice)? @ -No What co-morbidities impacted this encounter? (DM, HTN, Smoking, COPD, CAD, C ancer, CVA, Hep., AIDS, mental health diagnosis, sleep apnea, morbid obesity)? @ -A-fib, HTN Was patient admitted / discharged? @ -Discharged. Lab work obtained revealing an INR of 4.3, which is increased when compared with yesterday, when it was 3.6. Hemoglobin is within normal limits at 15.8. Her urine was essentially pure blood, and urinalysis could not be fully evaluated for signs of infection. This was sent for culture. Given th e left flank pain, computed tomography scan of the abdomen and pelvis was obtained. This revealed mild dilation of the left renal collecting system which could be due to a recently passed calculus. No obstructing calculus was identified. Discussed with the patient that based on the workup at this time, she can be discharged home. She is instructed to avoid taking her warfarin for 2-3 days and to follow-up with her primary care provider on Sunday for reevaluation and to have her INR rechecked. Undiagnosed new problem with uncertain prognosis? @ -None Drug Therapy requiring intensive monitoring for toxicity (Heparin, Nitro, Insulin, Cardizem)? @ -None Were any procedures done? @ -None Diagnosis/symptom? @ -Hematuria Acute, or Chronic, or Acute on Chronic? @ -Acute Uncomplicated (without systemic symptoms) or Complicated (systemic symptoms)? @ -Uncomplicated Side effects of treatment? @ -None Exacerbation, Progression, or Severe Exacerbation] @ -Not applicable Poses a threat to life or bodily function? @ -Unlikely Return precautions reviewed in depth, the patient is instructed to return to the emergency department with any new, worsening, or concerning symptoms. Patient verbalized understanding. This case was discussed in detail with the attending ED physician, Dr. Yeager. Presentation, findings, and treatment plan discussed in detail as well. - Lab Data Result diagrams: 12/02/22 09:11 12/02/22 09:11 Lab Results 12/02/22 12/02/22 12/02/22 Range/Units 09:11 09:11 09:11 WBC 6.7 (3.8-10.6) k/uL RBC 4.71 (3.80-5.40) m/uL Hgb 15.8 (11.4-16.0) gm/dL Hct 48.0 H (34.0-46.0) % MCV 101.9 H (80.0-100.0) fL MCH 33.5 (25.0-35.0) pg MCHC 32.9 (31.0-37.0) g/dL RDW 12.9 (11.5-15.5) % Plt Count 200 (150-450) k/uL MPV 7.8 Neutrophils % 78 % Lymphocytes % 14 % Monocytes % 5 % Eosinophils % 0 % Basophils % 0 % Neutrophils # 5.2 (1.3-7.7) k/uL Lymphocytes # 0.9 L (1.0-4.8) k/uL Monocytes # 0.3 (0-1.0) k/uL Eosinophils # 0.0 (0-0.7) k/uL Basophils # 0.0 (0-0.2) k/uL Macrocytosis Slight PT 42.5 H (9.0-12.0) sec INR 4.3 H (<1.2) APTT 36.9 H (22.0-30.0) sec Sodium (137-145) mmol/L Potassium (3.5-5.1) mmol/L Chloride (98-107) mmol/L Carbon Dioxide (22-30) mmol/L Anion Gap mmol/L BUN (7-17) mg/dL Creatinine (0.52-1.04) mg/dL Est GFR (CKD-EPI)AfAm (>60 ml/min/1.73 sqM) Est GFR (CKD-EPI)NonAf (>60 ml/min/1.73 sqM) Glucose (74-99) mg/dL Calcium (8.4-10.2) mg/dL Total Bilirubin (0.2-1.3) mg/dL AST (14-36) U/L ALT (4-34) U/L Alkaline Phosphatase (38-126) U/L Total Protein (6.3-8.2) g/dL Albumin (3.5-5.0) g/dL Urine Color R Urine Appearance Cloudy H (Clear) Urine RBC >182 H (0-5) /hpf 12/02/22 Range/Units 09:11 WBC (3.8-10.6) k/uL RBC (3.80-5.40) m/uL Hgb (11.4-16.0) gm/dL Hct (34.0-46.0) % MCV (80.0-100.0) fL MCH (25.0-35.0) pg MCHC (31.0-37.0) g/dL RDW (11.5-15.5) % Plt Count (150-450) k/uL MPV Neutrophils % % Lymphocytes % % Monocytes % % Eosinophils % % Basophils % % Neutrophils # (1.3-7.7) k/uL Lymphocytes # (1.0-4.8) k/uL Monocytes # (0-1.0) k/uL Eosinophils # (0-0.7) k/uL Basophils # (0-0.2) k/uL Macrocytosis PT (9.0-12.0) sec INR (<1.2) APTT (22.0-30.0) sec Sodium 139 (137-145) mmol/L Potassium 4.0 (3.5-5.1) mmol/L Chloride 104 (98-107) mmol/L Carbon Dioxide 26 (22-30) mmol/L Anion Gap 9 mmol/L BUN 13 (7-17) mg/dL Creatinine 0.52 (0.52-1.04) mg/dL Est GFR (CKD-EPI)AfAm >90 (>60 ml/min/1.73 sqM) Est GFR (CKD-EPI)NonAf 89 (>60 ml/min/1.73 sqM) Glucose 107 H (74-99) mg/dL Calcium 10.3 H (8.4-10.2) mg/dL Total Bilirubin 1.4 H (0.2-1.3) mg/dL AST 37 H (14-36) U/L ALT 33 (4-34) U/L Alkaline Phosphatase 105 (38-126) U/L Total Protein 7.8 (6.3-8.2) g/dL Albumin 4.6 (3.5-5.0) g/dL Urine Color Urine Appearance (Clear) Urine RBC (0-5) /hpf - Radiology Data Radiology results: report reviewed, image reviewed Disposition Clinical Impression: Hematuria Disposition: HOME SELF-CARE Instructions (If sedation given, give patient instructions): Hematuria (ED) Additional Instructions: Return to the emergency department with any new, worsening, or concerning symptoms. Stop taking your warfarin for 2-3 days and follow-up with your primary care provider early next week to have your INR rechecked. Is patient prescribed a controlled substance at d/c from ED?: No Referrals: Cristhian Sheppard MD [Primary Care Provider] - 1-2 days
[2022-12-02 09:16] VITALS: TEMP 97.7
[2022-12-02 09:26] LABS: Basophils % (A) 0 %; Eosinophils % (A) 0 %; HGB 15.8 gm/dL (11.4-16.0); Lymphocytes # (A) 0.9 k/uL (1.0-4.8); Lymphocytes % (A) 14 %; MCH 33.5 pg (25.0-35.0); MCHC 32.9 g/dL (31.0-37.0); MCV 101.9 fL (80.0-100.0); Macrocytosis Slight; Mean Platelet Volume 7.8; Monocytes # (A) 0.3 k/uL (0-1.0); Monocytes % (A) 5 %; Neutrophils # (A) 5.2 k/uL (1.3-7.7); Neutrophils % (A) 78 %; Platelet Count 200 k/uL (150-450); RBC 4.71 m/uL (3.80-5.40); RDW 12.9 % (11.5-15.5); WBC 6.7 k/uL (3.8-10.6)
[2022-12-02 09:27] LABS: Appearance,Urine Cloudy (Clear); Color,Urine R
[2022-12-02 09:33] LABS: RBC,Urine >182 /hpf (0-5)
[2022-12-02 09:45] LABS: ALT 33 U/L (4-34); African American GFR (CKD) >90 (>60 ml/min/1.73 sqM); Albumin 4.6 g/dL (3.5-5.0); Anion Gap 9 mmol/L; Blood Urea Nitrogen 13 mg/dL (7-17); Calcium 10.3 mg/dL (8.4-10.2); Carbon Dioxide 26 mmol/L (22-30); Chloride 104 mmol/L (98-107); Glucose 107 mg/dL (74-99); Non-African American GFR(CKD) 89 (>60 ml/min/1.73 sqM); Sodium 139 mmol/L (137-145); Total Bilirubin 1.4 mg/dL (0.2-1.3); Total Protein 7.8 g/dL (6.3-8.2)
[2022-12-02 09:48] LABS: AST 37 U/L (14-36); Alkaline Phosphatase 105 U/L (38-126); INR 4.3 (<1.2); Partial Thromboplastin Time 36.9 sec (22.0-30.0); Prothrombin Time 42.5 sec (9.0-12.0)
--- NOTE | 2022-12-02 10:25 | CT ---
EXAMINATION TYPE: CT abdomen pelvis wo con CT DLP: 513.3 mGycm, Automated exposure control for dose reduction was used. DATE OF EXAM: 12/02/2022 10:10 AM COMPARISON: CT abdomen pelvis most recent from 04/27/2022. CLINICAL INDICATION:Female, 82 years old with history of Left flank pain, hematuria; Left flank pain, hematuria TECHNIQUE: Axial CT of the abdomen and pelvis. Sagittal and coronal reformats were created on a [employer] workstation. Contrast used: mL of , (none if empty) Oral contrast used: without Oral Contrast (none if empty) FINDINGS: LOWER CHEST: Streaky atelectasis in the lung bases. The heart is moderately enlarged for size. ABDOMEN LIVER: Unremarkable GALLBLADDER AND BILE DUCTS: Increased density layering in the gallbladder lumen. PANCREAS: Unremarkable. SPLEEN: Unremarkable. ADRENAL GLANDS: Unremarkable. KIDNEYS AND URETERS: The right kidney is without evidence for colitis or obstruction. Left kidney is without evidence for fistulous obstruction. Renal sinus calcifications felt to be vasculature. Mild d ilation of the left renal collecting system. PELVIS BLADDER: Unremarkable REPRODUCTIVE: Unremarkable. ABDOMEN & PELVIS STOMACH AND BOWEL: Large amount stool seen throughout the abdomen. No evidence of bowel obstruction. Small hiatal hernia. PERITONEUM/RETROPERITONEUM: No evidence of pneumoperitoneum or free fluid. VASCULATURE: Moderate atherosclerotic calcifications are present throughout the abdominal aorta and i ts branches. No evidence of aortic aneurysm. Right lower extremity stent graft is present. MUSCULOSKELETAL: No acute osseous abnormalities. Moderate disc degeneration changes are present throu ghout the thoracolumbar spine. Multilevel biconcave wedging of the spine. Findings have similar appea richard to 2020. LYMPH NODES: No gross evidence for lymphadenopathy. SOFT TISSUE/ABDOMINAL WALL: Fat-containing umbilical hernia. IMPRESSION: 1. Mild dilation of the left renal collecting system which could be secondary to recently passed sto ne. No obstructing calculus visualized. No right renal calculi visualized hydronephrosis. 2. Biliary sludge/cholelithiasis. 3. Extensive atherosclerosis. 4. Small hiatal hernia. 5. Large amount stool in the colon. 6. Moderate cardiomegaly.
[2022-12-02 10:50] VITALS: RESP 18
[2022-12-02 12:12] VITALS: BP 166/88; PULSE 64
== END 2022-12-02 12:10 | disposition home or self-care (01) ==
LOC: SUPCPDRO 08:59 → EC 08:59
DX: R31.9 Hematuria, unspecified (principal); E78.5 Hyperlipidemia, unspecified; I48.91 Unspecified atrial fibrillation; I10 Essential (primary) hypertension; Z87.891 Personal history of nicotine dependence; Z79.82 Long term (current) use of aspirin; Z79.899 Other long term (current) drug therapy; Z79.01 Long term (current) use of anticoagulants
CPT/HCPCS: 36415; 74176; 80053; 81001; 85025; 85610; 85730; 93005; 99284

== ENCOUNTER → 2023-06-28 | Outpatient (CLI) | payer MEDICARE, BC ==
[2023-06-28 14:25] LABS: HCT 43.9 % (37.2-46.3); HGB 14.4 g/dL (12.0-15.0); MCHC 32.8 g/dL (32.0-37.0); MCV 100.5 FL (80.0-97.0); Mean Platelet Volume 10.6 FL (9.5-12.2); NRBC Per 100 WBC 0 X 10*3/uL (0.00-0.01); Platelet Count 141 X 10*3/uL (140-440); RBC 4.37 X 10*6/uL (4.10-5.20); RDW 12.7 % (11.5-14.5); WBC 4.51 X 10*3/uL (4.50-10.00)
[2023-06-28 14:52] LABS: Albumin 4.3 g/dL (3.8-4.9); Calcium 9.9 mg/dL (8.7-10.3); Carbon Dioxide 26.2 mmol/L (21.6-31.8); Chloride 103 mmol/L (96-109); Glucose 106 mg/dL (70-110); Phosphorus 2.6 mg/dL (2.4-5.1); Potassium 3.9 mmol/L (3.5-5.5); Sodium 141 mmol/L (135-145)
[2023-06-28 15:21] LABS: NT-Pro-B-Type Natriuretic Pept 186 pg/mL (0-450)
== END | disposition home or self-care (01) ==
LOC: LABWHC1 09:13
PROVIDERS: ATTEND Internal Medicine
DX: I50.9 Heart failure, unspecified (principal); R06.02 Shortness of breath
CPT/HCPCS: 36415; 80069; 83880; 85027